=== PATIENT | female | born 1975 | race Caucasian/White ===

== ENCOUNTER 2017-05-27 11:48 | Emergency (ER) | payer OTHER ==
[~2017-05-27] VITALS: Ht 165.1 cm; Wt 86.2 kg
--- NOTE | ~2017-05-27 | CR195 ---
[facility]. [facility] A Service of [facility] & [facility] RADIOLOGY TEXT RESULTS PATIENT: JOSHUA INIGUEZ LOCATION: SED : 75 UNIT #: [id number] AGE: [address]: Srinath Brandon MD SEX: F ORDER DR: [id number] [place] [id number] E MR#: [id number] Acc #: [id number] NAME: JOSHUA INIGUEZ : 1975 SEX: F STUDY DATE/TIME: 05/27/2017 13:30 UNIT: SED ROOM: STUDY DESCRIPTION: CR Neck Soft Tissue Attending Physician: Srinath Brandon M.D. Ordering Physician: Srinath Brandon M.D. MEDICAL IMAGING REPORT This report is preliminary unless electronic signature is present. EXAM Neck soft tissue INDICATION Neck pain for 1 day. Foreign body sensation. FINDINGS 2 views of the neck soft tissues without contrast. The nasopharynx, hypopharynx, and oropharynx are unremarkable. Laryngeal soft tissues are within normal limits. Prevertebral soft tissues are normal. IMPRESSION Negative neck soft tissue. Dictated by... Ryan Coronel M.D. THIS IS AN ELECTRONICALLY VERIFIED REPORT Ryan Coronel M.D. at 05/28/2017 3:44 PM ELVA/melody TD: 05/28/2017 12:06 JOB #: [id number] MEDICAL IMAGING REPORT Page 1 of 1
== END 2017-05-27 15:09 | disposition home or self-care (01) ==
LOC: SED 11:48
DX: J02.9 Acute pharyngitis, unspecified (principal); F41.9 Anxiety disorder, unspecified; F17.210 Nicotine dependence, cigarettes, uncomplicated; Z86.73 Personal history of transient ischemic attack (TIA), and cerebral infarction without residual deficits
CPT/HCPCS: 70360; 87651; 99284